=== PATIENT | female | born 1945 | race Caucasian/White ===

== ENCOUNTER 2017-04-08 09:20 | Day surgery (SDC) | payer MEDICARE, BC ==
[2017-04-07 14:41] LABS: HEMATOCRIT 38.3 % (36.0-48.0); HEMOGLOBIN 12.8 g/dL (12-16); MCH 30.5 pg (26.0-34.0); MCHC 33.4 g/dL (31.0-37.0); MCV 91.2 fL (80.0-100.0); MEAN PLATELET VOLUME 8.9 fL (7.4-10.4); RBC 4.2 10x6/uL (4.00-5.40); RDW 13.1 % (11.5-14.5); WBC 5.8 10x3/uL (4.8-10.8)
[2017-04-07 14:58] LABS: ANION GAP 12.6 mmol/L (8-16); CALCIUM 9.7 mg/dL (8.5-10.1); CARBON DIOXIDE 29.2 mmol/L (21.0-32.0); POTASSIUM - SERUM 3.8 mmol/L (3.5-5.1)
[2017-04-07 15:02] LABS: APTT 30.6 SECONDS (22.8-39.4); INR 0.88 (0.85-1.17); PROTIME 11.6 SECONDS (11.6-15.0)
[~2017-04-08] VITALS: Ht 152.4 cm; Wt 83.9 kg
--- NOTE | ~2017-04-08 | OP ---
PATIENT NAME: KATHY VILLASENOR MEDICAL RECORD: [id number] :45 LOCATION:D[facility] ADMISSION DATE: SURGEON: LIT KHAN DATE OF OPERATION: 04/08/2017 SURGEON: Lit Khan DPM PREOPERATIVE DIAGNOSES: 1. Hammertoe deformity, fourth toe, left foot. 2. Hammertoe deformity, fifth toe, left foot. PROCEDURE: 1. Arthroplasty, fourth toe, left foot. 2. Arthroplasty, fifth toe, left foot. ANESTHESIA: Local with monitored anesthesia care. HEMOSTASIS: Pneumatic ankle tourniquet inflated to 250 mmHg. ESTIMATED BLOOD LOSS: Minimal. MATERIALS: 3-0 Vicryl, 4-0 nylon. INJECTABLES: 20 cc of 0.5% bupivacaine plain. The patient has longstanding history of pain associated with hammertoe deformities of the fourth and fifth toe of left foot. We have reviewed the proposed procedure, risks and benefits were discussed. Complications were reviewed. She was appropriately consented for the above-mentioned procedures. The patient was brought in the operating room and placed in the operating table in supine position. A timeout was called with Dr. Khan who identified the patient, the surgical site and the surgeries to be performed. Once appropriate anesthesia was obtained, the foot was prepped and draped in the usual aseptic manner. The pneumatic ankle tourniquet was inflated to 250 mmHg on the well-padded left ankle. PROCEDURE NUMBER 1: Arthroplasty, fourth toe, left foot. Attention was directed to the dorsal aspect of the fourth toe of the left foot where a 3-cm linear incision was made. This incision was carried deep to soft tissue with care being taken to retract all vital neurovascular structures. All bleeders were cauterized along the way. The extensor tendon was then transected from medial to lateral at the level of the proximal interphalangeal joint. All soft tissue attachments were freed from the head of the proximal phalanx. Next, the head of the proximal phalanx was resected. All sharp bone edges were removed with a rasp and rongeur. The surgical site was then irrigated with copious amounts of normal sterile saline via bulb syringe. The extensor tendon was then reapproximated and coapted utilizing 3-0 Vicryl. The subQ was then reapproximated and coapted utilizing 3-0 Vicryl. The skin was then reapproximated and coapted using 4-0 nylon. PROCEDURE NUMBER 2: Arthroplasty, fifth toe, left foot. OPERATIVE REPORT [id number] KATHY VILLASENOR The exact same procedure that was performed in procedure #1 (arthroplasty, fourth toe, left foot) was performed on the fifth toe of left foot without exception. A dressing consisting of Xeroform, 4 x 4's, Kerlix, and Emery bandage was applied to the left foot. The pneumatic ankle tourniquet was deflated and cap refill time is immediate to all digits of the left foot. The patient was discharged home with instructions to ice and elevate the left foot. She was dispensed a postop shoe to help further offload the foot. She will follow up with me next week. There were no complications with this procedure. She has my cell phone number for any after hour difficulties. TRANSINT:[id number] Voice Confirmation ID: [id number] DOCUMENT ID: [id number] LIT KHAN at 1450 CC: [id number] DICTATION DATE: 04/08/17 1618 MANAGER OF DIGITAL: 04/08/17 1640 [facility] 04/08/17 [facility] [address] [place] [address]
[~2017-04-08 09:20] MED LIST: ASCORBIC ACID500 MG PO; BIOTIN5 MG PO; CALCIUM 600 +1 EAC3 PO; COZAAR100 MG PO; CYMBALTA30 MG PO; HYDROCHLOROTH12.5 M1 PO; KRILL OIL 1,001 EAC1; NEURONTIN600 MG PO; NORCO 7.5/325 T1 TA1 PO; PROAIR HFA8.5 GM INH; PROBIOTIC1 EAC1 PO; SINGULAIR10 MG PO; VITAMIN B COMPL1 TAB PO; ZYRTEC10 MG PO
[2017-04-08 10:19] VITALS: BP 141/75; Ht 152.4 cm; Wt 83.9 kg
== END 2017-04-08 14:15 | disposition home or self-care (01) ==
LOC: D.OPS 09:20 → D.PAN 12:45 → D.OPS 14:15
PROVIDERS: Anesthesiology
DX: M20.42 Other hammer toe(s) (acquired), left foot (principal); I45.10 Unspecified right bundle-branch block; I10 Essential (primary) hypertension; Z01.812 Encounter for preprocedural laboratory examination

== ENCOUNTER 2018-06-13 16:51 | Inpatient (IN) | payer MEDICARE, BC ==
[~2018-06-13] VITALS: Ht 152.4 cm; Wt 86.4 kg
--- NOTE | ~2018-06-13 | EC ---
PATIENT:KATHY VILLASENOR DATE OF SERVICE: 06/13/18 SEX: F MEDICAL RECORD: [id number] DATE OF : 45 LOCATION:D[facility] AGE OF PATIENT: 73 ADMISSION DATE: 06/13/18 REFERRING PHYSICIAN: INTERPRETING PHYSICIAN: CNADY PITTMAN MD ECHOCARDIOGRAM REPORT ECHO CHARGES 4 ECHO COMPLETE Date: 06/14/18 CLINICAL DIAGNOSIS: HTN,FALL/SYNCOPE ECHOCARDIOGRAPHIC MEASUREMENTS (adult normal given) AC root (d.<3.7cm) 2.7 cm LV Septum d (<1.2 cm> 1.0 cm Valve Excursion 1.3 cm LV Septum (systole) 1.2 cm Left Atria (s.<4.0cm> 3.9 cm LVPW d(<1.2cm) 1.1 cm RV (d.<2.3cm) 3.9 cm LVPW (sytole) 1.2 cm LV diastole(<5.6CM) 5.2 cm MV E-F(>70mm/sec) cm LV systole 2.9 cm LVOT Diameter 1.3 cm MV exc.(>10mm) 1.4 cm Est.ejection fraction (50-75%) % DOPPLER: LVIT cm/sec A 86.0 cm/sec E 76.0 cm/sec LA cm/sec RVSP 24 mmHg LVOT 120 cm/sec AOP1/2T m/s Asc. Ao 186 cm/sec RVOT 80 cm/sec RA cm/sec PA 105 cm/sec AV Gradient Peak 13.87mmHg AV Mean 7.28 mmHg AV Area 1.6 cm MV Gradient Peak 4.97 mmHg MV Mean 2.16 mmHg MV Area cm COMMENTS: Roof Service Technician: Adarsh SETH Metal Handler: 1 Dr. Pittman TAPE# PACS Pericardial Effusion N DATE OF SERVICE: 06/14/2018 FINDINGS: 1. Left ventricular chamber size is within normal limits. Left ventricular systolic function is normal. Overall ejection fraction estimated at 60%. 2. Left atrium, right atrium, and right ventricular chamber sizes are within normal limits. 3. Valvular structures have normal structure and motion. 4. Doppler interrogation reveals mild tricuspid regurgitation. No other valvular insufficiency or stenosis. Pulmonary systolic pressure is normal, ECHOCARDIOGRAM REPORT [id number] KATHY VILLASENOR estimated at 24 mmHg. 5. No evidence of pericardial effusion or left ventricular thrombus. TRANSINT:[id number] Voice Confirmation ID: [id number] DOCUMENT ID: [id number] CANDY PITTMAN MD CC: [id number] DICTATION DATE: 06/15/18948 LPN CARE MANAGER: 06/15/[address] [facility] [address] [place] [id number]
--- NOTE | ~2018-06-13 | CN ---
PATIENT NAME:KATHY LOBO MEDICAL RECORD: [id number] : 45 LOCATION:D[facility] ADMIT DATE: 06/13/18 ACCOUNT: [id number] CONSULTING PHYSICIAN: CANDY MANLEY MD REFERRING PHYSICIAN: CEFERINO JI MD DATE OF CONSULTATION: 06/14/2018 CARDIOLOGY CONSULTATION DIAGNOSES: 1. Syncope. 2. Hypertension. 3. Ankle fracture. HISTORY OF PRESENT ILLNESS: Ms. Lobo got her ankle twisted at home. She had syncope only after the fall secondary to the pain in the ankle. She did not have any palpitations or syncope prior to the ankle injury. She is admitted for orthopedic procedure on the left ankle due to the injury and the dislocation. She denies any cardiac history. She has a history of hypertension for which she takes losartan HCT. She has had no chest pain, no chest discomfort, no shortness of breath, no cardiac symptomatology. PHYSICAL EXAMINATION: GENERAL APPEARANCE: Well-nourished, well-developed, appears stated age. Level of distress, comfortable. PSYCHIATRIC: Mental status, alert, normal affect. Orientation, oriented to time, place and person. EYES: Lids and conjunctiva, noninjected. No discharge, no pallor. ENT: Lips, teeth, gums, normal dentition. Oropharynx, no cyanosis, no pallor. NECK: Carotid arteries, bilateral normal upstroke, no bruits, no thrills. JUGULAR VEINS: No jugular venous pressure or distention. CERVICAL LYMPH NODES: Nontender, nonenlarged. THYROID: Not enlarged. Nontender. No nodules. LUNGS: Respiratory effort, unlabored. CHEST: Normal curvature. No thoracic deformity. No chest wall tenderness. Percussion, resonant. Auscultation, clear. No wheezes, no rales, no rhonchi. CARDIOVASCULAR: Precordial exam, nondisplaced. No heaves or pericardial thrills. Rate and rhythm, regular. Heart sounds, normal S1, normal S2. No S3, no gallop, no rub. Systolic murmur, not heard. Diastolic murmur, not heard. EXTREMITIES: No cyanosis, no edema. Peripheral pulses, full and equal in all extremities, except as noted. No bruits appreciated. ABDOMEN: Soft, nondistended. Normal aorta. No bruit. Nontender. No masses. Liver, nontender, no hepatomegaly. Spleen, nontender, no splenomegaly. MUSCULOSKELETAL: No joint tenderness. No joint swelling. No erythema. NEUROLOGICAL: Normal gait, normal strength, normal tone. SKIN: Warm and dry. OVERALL IMPRESSION: Syncope only after the pain of the ankle injury, most likely this is noncardiovascular in etiology. Echocardiogram has been ordered. No other cardiac workup is necessary. TRANSINT:[id number] Voice Confirmation ID: [id number] DOCUMENT ID: [id number] CONSULT REPORT [id number] KATHY LOBO JEFFREY MD CC: [id number] DICTATION DATE: 06/14/18 1150 BRAZER RESISTANCE: 06/14/18 1200 ADM IN [id number] [place] [address]
--- NOTE | 2018-06-13 04:35 | NUR ---
I have reviewed this patient and I concur with the Shift Assessment completed by the Licensed Practical Nurse today this shift.
[2018-06-13] MEDS ORDERED: FLUID PILL (16:59)
--- NOTE | 2018-06-13 17:45 | NUR ---
BALJEET MOBLEY AT BEDSIDE, [facility] SPLINT REMOVED BY BALJEET, LEFT FOOT APPEARS ANGULATED. POSSIBLE DISLOCATION, PEDAL PULSES REMAIN POSITIVE TO PALP.
[2018-06-13 18:43] LABS: BASOPHILS 0.2 % (0-2); EOSINOPHILS 0.3 % (0-7); HEMATOCRIT 39.7 % (36.0-48.0); HEMOGLOBIN 13.4 g/dL (12-16); IMMATURE GRANULOCYTES 0.2 % (0-5); LYMPHOCYTES 15.6 % (15-50); MCH 29.8 pg (26.0-34.0); MCHC 33.8 g/dL (31.0-37.0); MCV 88.2 fL (80.0-100.0); MEAN PLATELET VOLUME 9.4 fL (7.4-10.4); MONOCYTES 5.7 % (2-11); PLATELET COUNT 277 10x3/uL (130-400); RDW 13.1 % (11.5-14.5); WBC 10.3 10x3/uL (4.8-10.8)
[2018-06-13 18:53] LABS: APTT 27.7 SECONDS (22.8-39.4); INR 0.99 (0.85-1.17); PROTIME 12.6 SECONDS (11.6-15.0)
[2018-06-13 19:00] VITALS: BP 122/62
[2018-06-13 19:00] LABS: ALBUMIN 3.8 g/dL (3.4-5.0); ANION GAP 16.8 mmol/L (8-16); BILIRUBIN - TOTAL 0.43 mg/dL (0.2-1.3); CALCIUM 9.6 mg/dL (8.5-10.1); CARBON DIOXIDE 24.4 mmol/L (21.0-32.0); CREATININE - SERUM 1.8 mg/dL (0.6-1.3); POTASSIUM - SERUM 4.2 mmol/L (3.5-5.1); PROTEIN - SERUM 7.9 g/dL (6.4-8.2)
[2018-06-13 20:00] VITALS: BP 111/56
[2018-06-13 21:00] VITALS: BP 116/68
[2018-06-13 22:00] VITALS: BP 110/62
--- NOTE | 2018-06-13 22:00 | NUR ---
PT HAVING MUSCLE SPASMS IN LOWER LEGS BILAT. DR MARGY PUENTES.
--- NOTE | 2018-06-13 22:15 | NUR ---
DR JI CALLED BACK SEE EMAR. ORDERS READ BACK AND VERIFIED.
--- NOTE | 2018-06-13 22:20 | NUR ---
MED NOT IN PYXIS CLAY MODELER INFORMED.
--- NOTE | 2018-06-13 23:00 | NUR ---
PT RESTING EYES CLOSED RESP EVEN AND UNLABORED AT THIS TIME. FAMILY AT BEDSIDE.
[2018-06-14] VITALS (11 sets, daily range): BP systolic 109–146; BP diastolic 51–84; Ht 152.4 cm; Wt 86.4 kg
--- NOTE | 2018-06-14 08:05 | NUR ---
AWAKE AND ALERT. ORIENTED X3. NO C/O AT THIS TIME. LUNGS ARE CLEAR BILATERALLY, NO COUGH NOTED. SKIN IS INTACT WITHOUT REDNESS. DRESSING AND SPLINT TO LEFT ANKLE DRY AND INTACT. IV TO RIGHT AC IS PATENT WITHOUT REDNESS AT INSERTION SITE. DENIES NEEDS. FAMILY AT BEDSIDE.
--- NOTE | 2018-06-14 09:20 | NUR ---
ASSISTED WITH BEDPAN. OVERFLOWED AND HAD TO CHANGE LINENS. PRE OP MEDS GIVEN PER ORDERS. OFF UNIT VIA BED TO SURGERY. FAMILY IN ROOM.
[2018-06-14 15:10] LABS: BASOPHILS 0.2 % (0-2); EOSINOPHILS 0.1 % (0-7); HEMATOCRIT 36.8 % (36.0-48.0); HEMOGLOBIN 11.9 g/dL (12-16); IMMATURE GRANULOCYTES 0.2 % (0-5); LYMPHOCYTES 8.2 % (15-50); MCH 29.6 pg (26.0-34.0); MCHC 32.3 g/dL (31.0-37.0); MEAN PLATELET VOLUME 9.2 fL (7.4-10.4); NEUTROPHILS 86.3 % (40-80); RBC 4.02 10x6/uL (4.00-5.40); RDW 13.3 % (11.5-14.5); WBC 10.2 10x3/uL (4.8-10.8)
[2018-06-14 15:12] LABS: MCV 91.5 fL (80.0-100.0); PLATELET COUNT 218 10x3/uL (130-400)
[2018-06-14 15:20] LABS: ANION GAP 12.9 mmol/L (8-16); CALCIUM 8.4 mg/dL (8.5-10.1); CARBON DIOXIDE 26.5 mmol/L (21.0-32.0); CREATININE - SERUM 1.6 mg/dL (0.6-1.3); POTASSIUM - SERUM 4.4 mmol/L (3.5-5.1)
--- NOTE | 2018-06-14 19:15 | NUR ---
NOTIFIED DR. JI DDIMER ELEVATED. NEW ORDERS RECEIVED. PATIENT ATE ALMOST ALL OF SUPPER. DENIES NEEDS. USED BED CEDILLO IWTH CLEAR YELLOW URINE.
--- NOTE | 2018-06-15 02:32 | NUR ---
REC'D IN BED AAOX3.POSTERIOR SPLINT WITH ACEWRAP DRSG. TO LEFT LOWER LEG UP ON PILLOW WITH ICE.ON BEDPAN TO VOID. OVER FLOWED COMPLETE BED BATH LINEN CHGE. GIVEN.TOES PINK WIGGLES ON COMMAND.WILL CONTINUE TO MONITOR NEURVASCULAR STATUS AND FOLLOW CURRENT PLAN OF CARE
[2018-06-15 04:19] LABS: BASOPHILS 0.1 % (0-2); EOSINOPHILS 0 % (0-7); HEMATOCRIT 33.4 % (36.0-48.0); IMMATURE GRANULOCYTES 0.2 % (0-5); LYMPHOCYTES 13.2 % (15-50); MCH 29.7 pg (26.0-34.0); MCHC 32.9 g/dL (31.0-37.0); MCV 90.3 fL (80.0-100.0); MEAN PLATELET VOLUME 9.1 fL (7.4-10.4); MONOCYTES 15.1 % (2-11); NEUTROPHILS 71.4 % (40-80); PLATELET COUNT 210 10x3/uL (130-400); RDW 13.2 % (11.5-14.5); WBC 9.6 10x3/uL (4.8-10.8)
[2018-06-15 04:31] LABS: ANION GAP 12.8 mmol/L (8-16); CALCIUM 8.2 mg/dL (8.5-10.1); CARBON DIOXIDE 26.4 mmol/L (21.0-32.0); CREATININE - SERUM 1.3 mg/dL (0.6-1.3); POTASSIUM - SERUM 4.2 mmol/L (3.5-5.1)
[2018-06-15 04:48] VITALS: BP 124/60
--- NOTE | 2018-06-15 04:48 | NUR ---
I have reviewed this patient and I concur with the Shift Assessment completed by the Licensed Practical Nurse today this shift.
--- NOTE | 2018-06-15 07:48 | NUR ---
PATIENT LAYIING IN BED. C/O RIGHT ARM PAIN. STATED THAT IT HAS BEEN HURTING ALL NIGHT. STATED THAT SHE THOUGHT MORPHINE SYRINGE WAS EMPTY LAST NIGHT. SYRINGE IS EMPTY. PATIENT AND SON THOUGHT PAIN WAS FROM IV. NIGHT NURSE REMOVED IV AT PATIENT'S REQUEST. EXPLAINED THAT SHE COULD NOT GET IV PAIN MEDICINE IF NO IV. NURSE GAVE IN REPORT THAT PATIENT REFUSED TO HAVE IV RESITED BUT PATIENT REQUESTS NEW IV AT THIS TIME FOR IV PAIN MED. NIGHT NURSE REPORTED GOOD BLOOD RETURN IN PREVIOUS IV AN DSHOWS NO SIGN OF INFILTRATION. FAMILY AT BEDSIDE. PER ORTHO E COMMERCE DEVELOPERCHELSIE, WAIT TO RESITE NEW IV UNTIL DR. LAWRENCE NOTIFIED OF CURRENT PATIENT STATUS.
[2018-06-15 08:45] VITALS: BP 102/63
--- NOTE | 2018-06-15 08:47 | MORECARE ---
CASE MANAGEMENT DISCHARGE SUMMARY PATIENT: KATHY VILLASENOR UNIT: [id number] ADM DATE: 06/13/18 AGE: 73 : 45 SEX: F ROOM/BED: D.2209 AUTHOR: VEORNICA,DOC PHYSICIAN: REFERRING PHYSICIAN: CEFERINO JI MD DATE OF SERVICE: 06/15/18 Discharge Plan Patient Name: KATHY VILLASENOR Facility: [facility]:[place] : 1945 Planned Disposition: Inpatient Rehab Anticipated Discharge Date: Discharge Date: Expected LOS: Initial Reviewer: [email or web address] Initial Review Date: 06/13/2018 Generated: 06/15/18 9:46 am Comments DCP- Discharge Planning Updated by [email or web address]: Liza Naylor on 06/15/18 7:[address] Patient Name: KATHY VILLASENOR Admission Status: ER Accout number: [id number] Admission Date: 06-13-2018 : 1945 Admission Diagnosis: Attending: CEFERINO JI Current LOS: 2 Anticipated DC Date: Planned Disposition: Inpatient Rehab Primary Insurance: MEDICARE A & B Discharge Planning Comments: CM met with patient to complete initial dc planning assessment. CM educated patient on the CM role and verbal consent given by patient to complete assessment. Patient lives at home where she is independent with her care. Her sister is planning on coming to stay with her but will not arrive for another 1-2 weeks. At discharge patient would like to go to [facility] on [facility]. Patient's son and family are at bedside and are agreeable to there. I will send a referral. Patient has canes, walker, and a shower chair at home. CM will continue to follow and will assist as needed with dc plans/needs. Hospital Product Specialist: Liza Naylor DCPIA - Discharge Planning Initial Assessment Updated by [email or web address]: Liza Naylor on 06/15/18 8:43 am * Is the patient Alert and Oriented? Yes * How many steps to enter\exit or inside your home? * PCP KEYONA * Pharmacy [facility] * Preadmission Environment Home Alone * ADLs Independent * Equipment Cane Rolling Walker Shower Chair * List name and contact numbers for known caregivers / representatives who currently or will assist patient after discharge: ASHLYN (SON) [phone] * Verbal permission to speak to the caregivers and representatives has been obtained from the patient. Yes * Community resources currently utilized None * Additional services required to return to the preadmission environment? Yes * Can the patient safely return to the preadmission environment? No * Has this patient been hospitalized within the prior 30 days at any hospital? No Patient Name: KATHY VILLASENOR Page [phone] at 0847 All edits/amendments must be made on the electronic document DICTATION DATE: 06/15/18845 HEALTHCARE ASSOCIATE: ANSHUL 06/15/18845 RPT#: [id number] DC DATE: STATUS: ADM IN [facility] [address] [place] [address] END OF REPORT
--- NOTE | 2018-06-15 08:55 | MORECARE ---
CASE MANAGEMENT DISCHARGE SUMMARY PATIENT: KATHY VILLASENOR UNIT: [id number] ADM DATE: 06/13/18 AGE: 73 : 45 SEX: F ROOM/BED: D.2209 AUTHOR: VERONICA,DOC PHYSICIAN: REFERRING PHYSICIAN: CEFERINO JI MD DATE OF SERVICE: 06/15/18 Discharge Plan Patient Name: KATHY VILLASENOR Facility: [facility]:[place] : 1945 Planned Disposition: Inpatient Rehab Anticipated Discharge Date: Discharge Date: Expected LOS: Initial Reviewer: [email or web address] Initial Review Date: 06/13/2018 Generated: 06/15/18 9:55 am Comments DCP- Discharge Planning Updated by [id number]: Liza Naylor on 06/15/18 7:[address] Patient Name: KATHY VILLASENOR Admission Status: ER Accout number: [id number] Admission Date: 06-13-2018 : 1945 Admission Diagnosis: Attending: CEFERINO JI Current LOS: 2 Anticipated DC Date: Planned Disposition: Inpatient Rehab Primary Insurance: MEDICARE A & B Discharge Planning Comments: CM met with patient to complete initial dc planning assessment. CM educated patient on the CM role and verbal consent given by patient to complete assessment. Patient lives at home where she is independent with her care. Her sister is planning on coming to stay with her but will not arrive for another 1-2 weeks. At discharge patient would like to go to [facility] on [facility]. Patient's son and family are at bedside and are agreeable to there. I will send a referral. Patient has canes, walker, and a shower chair at home. CM will continue to follow and will assist as needed with dc plans/needs. Ticket Puller: Liza Naylor DCPIA - Discharge Planning Initial Assessment Updated by [email or web address]: Liza Naylor on 06/15/18 8:43 am * Is the patient Alert and Oriented? Yes * How many steps to enter\exit or inside your home? * PCP KEYONA * Pharmacy [facility] * Preadmission Environment Home Alone * ADLs Independent * Equipment Cane Rolling Walker Shower Chair * List name and contact numbers for known caregivers / representatives who currently or will assist patient after discharge: ASHLYN (SON) [phone] * Verbal permission to speak to the caregivers and representatives has been obtained from the patient. Yes * Community resources currently utilized None * Additional services required to return to the preadmission environment? Yes * Can the patient safely return to the preadmission environment? No * Has this patient been hospitalized within the prior 30 days at any hospital? No External Providers External Provider: [facility] Contact Date: Service Request Date: Service Type: Resolution: Reviewer: Comments: Last DP export: 06/15/18 7:47 a Patient Name: KATHY VILLASENOR Page [phone] at 0855 All edits/amendments must be made on the electronic document DICTATION DATE: 06/15/18853 PRESCHOOL SPECIAL EDUCATION TEACHER: ANSHUL 06/15/1854 RPT#: [id number] DC DATE: STATUS: ADM IN [facility] [address] [place] [address] END OF REPORT
--- NOTE | 2018-06-15 10:17 | NUR ---
PER PHYSICAL THERAPY, PATIENT NOT WILLING TO GET UP DUE TO ANXIETY OF PAIN. PATIENT HAS DEMONSTRATED SEVERE ANXIETY DURING STAY. PT RECOMMENDS REHAB OR ALF UPON DISCHARGE.
--- NOTE | 2018-06-15 10:30 | NUR ---
REQUEST SOMETHING FOR ANXIETY.
[2018-06-15 12:40] VITALS: BP 106/59
--- NOTE | 2018-06-15 15:23 | MORECARE ---
CASE MANAGEMENT DISCHARGE SUMMARY PATIENT: KATHY VILLASENOR UNIT: [id number] ADM DATE: 06/13/18 AGE: 73 : 45 SEX: F ROOM/BED: D.2209 AUTHOR: VERONICADOC PHYSICIAN: REFERRING PHYSICIAN: CEFERINO JI MD DATE OF SERVICE: 06/15/18 Discharge Plan Patient Name: KATHY VILLASENOR Facility: [facility]:[place] : 1945 Planned Disposition: Inpatient Rehab Anticipated Discharge Date: Discharge Date: Expected LOS: Initial Reviewer: [email or web address] Initial Review Date: 06/13/2018 Generated: 06/15/18 4:23 pm Comments DCP- Discharge Planning Updated by [id number]: Liza Naylor on 06/15/18 2:[address] imm served and explained, copy given. DCP- Discharge Planning Updated by [id number]: Liza Naylor on 06/15/18 7:[address] Patient Name: KATHY VILLASENOR Admission Status: ER Accout number: [id number] Admission Date: 06-13-2018 : 1945 Admission Diagnosis: Attending: CEFERINO JI Current LOS: 2 Anticipated DC Date: Planned Disposition: Inpatient Rehab Primary Insurance: MEDICARE A & B Discharge Planning Comments: CM met with patient to complete initial dc planning assessment. CM educated patient on the CM role and verbal consent given by patient to complete assessment. Patient lives at home where she is independent with her care. Her sister is planning on coming to stay with her but will not arrive for another 1-2 weeks. At discharge patient would like to go to [facility] on [facility]. Patient's son and family are at bedside and are agreeable to there. I will send a referral. Patient has canes, walker, and a shower chair at home. CM will continue to follow and will assist as needed with dc plans/needs. Core Manager: Liza Naylor DCPIA - Discharge Planning Initial Assessment Updated by [email or web address]: Liza Naylor on 06/15/18 8:43 am * Is the patient Alert and Oriented? Yes * How many steps to enter\exit or inside your home? * PCP KEYONA * [facility] * Preadmission Environment Home Alone * ADLs Independent * Equipment Cane Rolling Walker Shower Chair * List name and contact numbers for known caregivers / representatives who currently or will assist patient after discharge: ASHLYN (SON) [phone] * Verbal permission to speak to the caregivers and representatives has been obtained from the patient. Yes * Community resources currently utilized None * Additional services required to return to the preadmission environment? Yes * Can the patient safely return to the preadmission environment? No * Has this patient been hospitalized within the prior 30 days at any hospital? No Coverage Notice Reviewer: [email or web address] Luma Naylor Notice Issued Date-Time: 06/15/2018 2:45 Notice Type: IM Discharge Notice Notice Delivered To: Patient Relationship to Patient: Windows Server Engineer Name: Delivery Method: HAND - Hand Delivered Nessa Days: Prior Verbal Notification: Recipient Understood Notice: Yes Recipient Signature: Yes Med Rec Note Co-signed by Attending: Coverage Notice Comment: Last DP export: 06/15/18 7:55 a Patient Name: KATHY VILLASENOR Page [phone] at 1523 All edits/amendments must be made on the electronic document DICTATION DATE: 06/15/18 152 MENTAL HYGIENE CONSULTANT: ANSHUL 06/15/181522 RPT#: [id number] DC DATE: STATUS: ADM IN [facility] [address] [place] [address] END OF REPORT
--- NOTE | 2018-06-15 16:01 | NUR ---
OT NOTE: PT COMPLETED GROOMING TASKS WITH MIN A. PT COMPLETED UE AROM AXS. THANK YOU, IRENE MARIANO
[2018-06-15 16:45] VITALS: BP 128/66
--- NOTE | 2018-06-15 18:39 | NUR ---
I have reviewed this patient and I concur with the Shift Assessment completed by the Licensed Practical Nurse today this shift.
[2018-06-15 20:02] LABS: APPEARANCE HAZY (CLEAR); BILIRUBIN NEGATIVE (NEGATIVE); COLOR YELLOW (YELLOW); GLUCOSE NEGATIVE (NEGATIVE); KETONE NEGATIVE (NEGATIVE); NITRITE NEGATIVE (NEGATIVE); PROTEIN NEGATIVE (NEGATIVE); SPECIFIC GRAVITY 1.025 (1.005-1.020); UROBILINOGEN NORMAL (NORMAL)
[2018-06-15 20:03] LABS: BACTERIA MODERATE /hpf (NONE SEEN); EPITHELIAL CELLS 0-5 /hpf (0-5); RED CELLS - URINE OCC /hpf (0-5); WHITE CELLS - URINE 0-5 /hpf (0-5)
[2018-06-15 21:47] VITALS: BP 127/66
[2018-06-16 04:37] VITALS: BP 148/74
[2018-06-16 04:51] LABS: BASOPHILS 0.3 % (0-2); EOSINOPHILS 2.8 % (0-7); HEMATOCRIT 31.9 % (36.0-48.0); HEMOGLOBIN 10.4 g/dL (12-16); IMMATURE GRANULOCYTES 0.3 % (0-5); MCH 29.5 pg (26.0-34.0); MCHC 32.6 g/dL (31.0-37.0); MCV 90.6 fL (80.0-100.0); MEAN PLATELET VOLUME 9.4 fL (7.4-10.4); MONOCYTES 15.3 % (2-11); NEUTROPHILS 53.3 % (40-80); PLATELET COUNT 204 10x3/uL (130-400); RBC 3.52 10x6/uL (4.00-5.40); RDW 13.4 % (11.5-14.5); WBC 7.8 10x3/uL (4.8-10.8)
--- NOTE | 2018-06-16 05:08 | NUR ---
1999)REC'D CHGE OF SHIFT SON REQUESTING MOM HAVE PAIN AND NITE TIME MEDS NOW. INFORMED TOO EARLY FOR PAIN MEDS HAD THEM AT [address] 7.5MG ONE TABLET.POSTERIOR SPLINT WITH ACEWRAP DRSG DRY TO LEFT ANKLE UP ON PILLOW. TOES PINK AND WARM.WIGGLES WITHOUT DIFFICULTY.WILL CONTINUE TO MONITOR FOR ANY CHGES IN NEUROVASCULAR STATUS AND FOLLOW CURRENT PLAN OF CARE.
[2018-06-16 05:09] LABS: CALCIUM 7.9 mg/dL (8.5-10.1); CARBON DIOXIDE 28.9 mmol/L (21.0-32.0); CREATININE - SERUM 1.3 mg/dL (0.6-1.3); POTASSIUM - SERUM 3.9 mmol/L (3.5-5.1)
--- NOTE | 2018-06-16 07:55 | NUR ---
I have reviewed this patient and I concur with the Shift Assessment completed by the Licensed Practical Nurse today this shift.
--- NOTE | 2018-06-16 08:10 | NUR ---
PATIENT IN BED, FAMILY AT BEDSIDE REQUESTING INFO ABOUT TRANSFERRING TO REHAB. EXPLAINED THAT PATIENT NEEDS TO GET UP BEFORE SHE CAN GO TO REHAB. DENIED REFUSING TO GET UP WITH PT OR TO BEDSIDE COMMODE TOLD IN REPORT. PATIENT AND FAMILY VERY ARGUMENTATIVE. I TOLD THEM THAT IS GOOD. SHE WILL HAVE OPPORTUNITY TODAY TO GET UP FOR REHAB EVAL. LINWOOD HOLGUIN, TALKING WITH PATIENT AND FAMILY I LEFT.
[2018-06-16] MEDS ORDERED: LEVAQUIN750 MG PO (09:34)
[2018-06-16] MEDS ORDERED: MIRALAX17 GM PO (09:41)
[2018-06-16] MEDS ORDERED: NORCO-7.5 PO (09:41)
[2018-06-16 10:39] VITALS: BP 122/73
--- NOTE | 2018-06-16 11:10 | NUR ---
OT NOTE: PT PERFORMED WELL TODAY. MAX ASSIST WITH TOILET HYGIENE; MAX ASSIST WITH TRANSFER WITH USE OF RW FOR TRANSFER; PT FATIGUES QUICKLY AND ARMS ARE WEAK, SHE IS NOT USED TO USING WALKER FOR AMB. BED MOB WITH MOD/MAX ASSIST. SIMPLE GROOMING AND FEEDING WITH SET UP. GAETANO OLIVER, OTR/L
--- NOTE | 2018-06-16 12:21 | MORECARE ---
CASE MANAGEMENT DISCHARGE SUMMARY PATIENT: KATHY VILLASENOR UNIT: [id number] ADM DATE: 06/13/18 AGE: 73 : 45 SEX: F ROOM/BED: D.2209 AUTHOR: VERONICA,DOC PHYSICIAN: REFERRING PHYSICIAN: CEFERINO JI MD DATE OF SERVICE: 06/16/18 Discharge Plan Patient Name: KATHY VILLASENOR Facility: [facility]:[place] : 1945 Planned Disposition: Inpatient Rehab Anticipated Discharge Date: Discharge Date: Expected LOS: Initial Reviewer: [email or web address] Initial Review Date: 06/13/2018 Generated: 06/16/18 1:21 pm Comments DCP- Discharge Planning Updated by [email or web address]: Liza Naylor on 06/16/18 11:[address] Patient will be discharging to [facility] inpatient rehab today. They will be picking her up at 2:00 pm. Her family is at her bedside and are aware. DCP- Discharge Planning Updated by [email or web address]: Liza Naylor on 06/15/18 2:[address] imm served and explained, copy given. DCP- Discharge Planning Updated by [email or web address]: Liza Naylor on 06/15/18 7:[address] Patient Name: KATHY VILLASENOR Admission Status: ER Accout number: [id number] Admission Date: 06-13-2018 : 1945 Admission Diagnosis: Attending: CEFERINO JI Current LOS: 2 Anticipated DC Date: Planned Disposition: Inpatient Rehab Primary Insurance: MEDICARE A & B Discharge Planning Comments: CM met with patient to complete initial dc planning assessment. CM educated patient on the CM role and verbal consent given by patient to complete assessment. Patient lives at home where she is independent with her care. Her sister is planning on coming to stay with her but will not arrive for another 1-2 weeks. At discharge patient would like to go to [facility] [address]. Patient's son and family are at bedside and are agreeable to there. I will send a referral. Patient has canes, walker, and a shower chair at home. CM will continue to follow and will assist as needed with dc plans/needs. Ways Operator: Liza Naylor DCPIA - Discharge Planning Initial Assessment Updated by [email or web address]: Liza Naylor on 06/15/18 8:43 am * Is the patient Alert and Oriented? Yes * How many steps to enter\exit or inside your home? * PCP [facility] * Pharmacy [facility] [address] * Preadmission Environment Home Alone * ADLs Independent * Equipment Cane Rolling Walker Shower Chair * List name and contact numbers for known caregivers / representatives who currently or will assist patient after discharge: ASHLYN (SON) [phone] * Verbal permission to speak to the caregivers and representatives has been obtained from the patient. Yes * Community resources currently utilized None * Additional services required to return to the preadmission environment? Yes * Can the patient safely return to the preadmission environment? No * Has this patient been hospitalized within the prior 30 days at any hospital? No Coverage Notice Reviewer: [id number] - Liza Naylor Notice Issued Date-Time: 06/15/2018 2:45 Notice Type: IM Discharge Notice Notice Delivered To: Patient Relationship to Patient: Can Doffer Name: Delivery Method: HAND - Hand Delivered Nessa Days: Prior Verbal Notification: Recipient Understood Notice: Yes Recipient Signature: Yes Med Rec Note Co-signed by Attending: Coverage Notice Comment: Last DP export: 06/15/18 2:23 p Patient Name: KATYH VILLASENOR Page [id number] at 1221 All edits/amendments must be made on the electronic document DICTATION DATE: 06/16/18 1221 SPORTS MARKETING COORDINATOR: ANSHUL 06/16/18 1221 RPT#: [id number] DC DATE: STATUS: ADM IN [facility] [address] [place] [address] END OF REPORT
--- NOTE | 2018-06-16 13:25 | NUR ---
DISCUSSED DISCHARGE, MEDICATION AND FOLLOW-UP INSTRUCTIONS WITH PATIENT AND FAMILY. CALLED REPORT TO MIGU[facility] DIAZ [facility]. TOLD PATIENT AND FAMILY TO GATHER BELONGINGS AND BE READY AT 1400 FOR TRNSPORT.
--- NOTE | 2018-06-16 15:30 | NUR ---
[facility] TRANSPORT CAME TO DIRECTOR OF DONOR RELATIONS PATIENT. PT CALLED TO ASSIST WITH TRANSFER TO WHEELCHAIR. ALL BELONGINGS SENT WITH PATIENT. DISCHARGED TO [facility] REH[facility] VIA WHEELCHAIR BY THEIR TRANSPORT PERSON. ACCOMPANIED BY SON.
== END 2018-06-16 15:30 | DRG 493 ==
LOC: D.ER 16:51 → D.EDHOLD 20:32 → D.MS 20:32
PROVIDERS: Family Medicine; Orthopaedic Surgery; ADMIT Internal Medicine Nephrology; ATTEND Internal Medicine Nephrology
PROC: 0MQR0ZZ Repair Left Ankle Bursa and Ligament, Open Approach (ICD-10-PCS; 2018-06-14)
PROC: 0QSK04Z Reposition Left Fibula with Internal Fixation Device, Open Approach (ICD-10-PCS; principal; 2018-06-14 09:51)
DX: S82.62XA Displaced fracture of lateral malleolus of left fibula, initial encounter for closed fracture (principal); N39.0 Urinary tract infection, site not specified; S92.102A Unspecified fracture of left talus, initial encounter for closed fracture; W19.XXXA Unspecified fall, initial encounter; S82.842A Displaced bimalleolar fracture of left lower leg, initial encounter for closed fracture; I10 Essential (primary) hypertension

== ENCOUNTER → 2018-08-09 15:58 | Outpatient (CLI) | payer MEDICARE, BC ==
[2018-06-14 03:03] VITALS: BMI 37.1
[~2018-08-09 15:58] MED LIST changes: +FLUID PILL; +LEVAQUIN750 MG PO; +MIRALAX17 GM PO; +NORCO-7.5 PO
[2018-08-09 16:37] LABS: BASOPHILS 0.6 % (0-2); EOSINOPHILS 4.8 % (0-7); HEMATOCRIT 37.2 % (36.0-48.0); HEMOGLOBIN 12.4 g/dL (12-16); IMMATURE GRANULOCYTES 0.2 % (0-5); LYMPHOCYTES 31.3 % (15-50); MCHC 33.3 g/dL (31.0-37.0); MCV 90.1 fL (80.0-100.0); MONOCYTES 8.6 % (2-11); NEUTROPHILS 54.5 % (40-80); RBC 4.13 10x6/uL (4.00-5.40); RDW 13.3 % (11.5-14.5); WBC 5.2 10x3/uL (4.8-10.8)
[2018-08-09 16:39] LABS: PLATELET COUNT 283 10x3/uL (130-400)
[2018-08-09 18:02] LABS: ERYTHROCYTE SEDIMENTATION RATE 15 mm/hr (0-30)
== END | disposition home or self-care (01) ==
LOC: D.LAB 15:58
PROVIDERS: ATTEND Orthopaedic Surgery
DX: T84.84XA Pain due to internal orthopedic prosthetic devices, implants and grafts, initial encounter (principal)